=== PATIENT | male | born 1960 | race African-American/Black ===

== ENCOUNTER 2023-04-30 04:22 | Inpatient (IN) | payer SELFPAY ==
[2023-04-30 04:36] VITALS: BMI 33.2
[2023-04-30] MEDS ORDERED: FAMOTIDINE 20 MG/50 ML IVPB 20 MG/50 ML MG IVPB ONE ×2 (04:46→04:50)
[2023-04-30] MEDS ORDERED: ONDANSETRON 4 MG/2 ML VIAL IVPUSH ONE ×2 (04:46→08:58)
[2023-04-30] MEDS ORDERED: LACTATED RINGERS SOLUTION 1000 ML INFUS.BAG IV ONE (04:46)
[2023-04-30] MEDS ORDERED: ONDANSETRON 4 MG/2 ML VIAL ONE ×2 (04:50→09:06)
[2023-04-30 05:18] LABS: BASO % 0.5 % (0-2.0); EOS % 3.1 % (0-4.5); HEMATOCRIT 37.4 % (35.4-49); HEMOGLOBIN 12.6 GM/dL (11.7-16.9); LYMPH % 24.3 % (8-40); MCH 30.1 pg (25.7-33.7); MCHC 33.8 g/dl (32.0-35.9); MEAN CELL VOLUME 88.9 fl (80-96); MEAN PLT VOLUME 8.4 fl (7.5-11.1); MONO % 4.7 % (3.8-10.2); NEUT % 67.4 % (42.8-82.8); PLATELET COUNT 314 10^3/uL (134-434); RDW 12.8 % (11.9-15.9); WHITE BLOOD COUNT 11.7 K/mm3 (4.0-10.0)
[2023-04-30 05:44] LABS: INR 0.91 (0.83-1.09); PROTHROMBIN TIME (PATIENT) 10.6 SEC (9.7-13.0)
[2023-04-30 05:47] LABS: ACTIVATED PTT 26.9 SECONDS (25.2-36.5)
[2023-04-30] MEDS ORDERED: METOCLOPRAMIDE HCL INJECTION 10 MG/2 ML VIAL IVPB ONE (05:55)
[2023-04-30] MEDS ORDERED: SODIUM CHLORIDE 0.9% 500 ML INFUS.BAG IV ONE (05:56)
[2023-04-30] MEDS ORDERED: METOCLOPRAMIDE HCL INJECTION 10 MG/2 ML VIAL ONE (05:57)
[2023-04-30 06:00] LABS: VENOUS BASE EXCESS -4.2 mmol/L (-2-2); VENOUS O2 SATURATION 34.3 % (70-80); VENOUS PCO2 53.3 mmHg (38-52); VENOUS PH 7.261 (7.310-7.410)
[2023-04-30 06:31] LABS: LACTIC ACID 2.9 mmol/L (0.4-2.0)
[2023-04-30 06:37] LABS: CHLORIDE 101 mmol/L (98-107); POTASSIUM 4.1 mmol/L (3.5-5.1); SODIUM 134 mmol/L (136-145)
[2023-04-30 06:39] LABS: CALCIUM 8.5 mg/dL (8.5-10.1)
[2023-04-30 06:40] LABS: ALBUMIN 3.1 g/dl (3.4-5.0); ANION GAP 8 MMOL/L (8-16); BLOOD UREA NITROGEN 27.2 mg/dL (7-18); CO2 25 mmol/L (21-32); LIPASE 123 U/L (73-393); MAGNESIUM 1.7 mg/dL (1.8-2.4)
[2023-04-30 06:42] LABS: SGPT/ALT 19 U/L (13-61)
[2023-04-30 06:43] LABS: CREATININE 1.3 mg/dL (0.55-1.3); SGOT/AST 12 U/L (15-37)
[2023-04-30 06:44] LABS: BILIRUBIN,TOTAL 0.2 mg/dL (0.2-1); TOT PROT 7.4 g/dl (6.4-8.2)
[2023-04-30 06:45] LABS: ALK PHOS 78 U/L (45-117)
[2023-04-30] MEDS ORDERED: INSULIN REGULAR HUMAN 100 UNITS/ML *VIAL SQ ONE ×2 (06:53→10:29)
[2023-04-30] MEDS ORDERED: INSULIN REGULAR HUMAN 100 UNITS/ML *VIAL ONE (06:58)
[2023-04-30 07:03] LABS: GLUCOSE,RANDOM 492 mg/dL (74-106)
[2023-04-30] MEDS ORDERED: ASPIRIN 81 MG CHEWABLE TABLETS PO ONE (07:04)
[2023-04-30] MEDS ORDERED: ASPIRIN 81 MG CHEWABLE TABLETS ONE (07:16)
[2023-04-30] MEDS ORDERED: HEPARIN NA (PORCINE) 5,000 UNITS/ML 1ML VIAL IVPUSH ONE (07:38)
[2023-04-30] MEDS ORDERED: HEPARIN INFUSION - 25,000 UNITS/500 ML INFUS.BAG IVPB SCH (07:45)
[2023-04-30 07:49] LABS: N-TERMINAL BNP 235.4 pg/ml (5-125)
[2023-04-30] MEDS ORDERED: HEPARIN INFUSION - 25,000 UNITS/500 ML INFUS.BAG IVPB ONE (08:03)
[2023-04-30] MEDS ORDERED: HEPARIN NA (PORCINE) 5,000 UNITS/ML 1ML VIAL ONE (08:04)
[2023-04-30 08:10] LABS: PH,URINE 5.5 (5.0-8.0); URINE APPEARANCE CLEAR; URINE BILIRUBIN NEGATIVE (NEGATIVE); URINE COLOR YELLOW; URINE GLUCOSE (UA) 3+ (NEGATIVE); URINE KETONE TRACE (NEGATIVE); URINE LEUK ESTERASE NEGATIVE (NEGATIVE); URINE NITRITE NEGATIVE (NEGATIVE); URINE PROTEIN TRACE (NEGATIVE); URINE UROBILINOGEN 0.2 mg/dL (0.2-1.0)
[2023-04-30 09:53] LABS: CHLORIDE 100 mmol/L (98-107); POTASSIUM 4.1 mmol/L (3.5-5.1); SODIUM 133 mmol/L (136-145)
[2023-04-30 09:56] LABS: CALCIUM 8.4 mg/dL (8.5-10.1)
[2023-04-30 09:57] LABS: ANION GAP 11 MMOL/L (8-16); CO2 22 mmol/L (21-32)
[2023-04-30 10:00] LABS: CREATININE 1.2 mg/dL (0.55-1.3)
[2023-04-30 10:01] LABS: GLUCOSE,RANDOM 466 mg/dL (74-106)
[2023-04-30] MEDS ORDERED: SODIUM CHLORIDE 1,000 ML IV SCH (10:30)
[2023-04-30] MEDS ORDERED: TRIMETHOBENZAMIDE HCL 200MG/2ML INJ IM PRN (10:31)
[2023-04-30] MEDS ORDERED: METOPROLOL TARTRATE 5 MG/5 ML VIAL IVPUSH ONE (10:45)
[2023-04-30] MEDS ORDERED: METOPROLOL TARTRATE 25 MG TABLET (FP) PO ONE (11:00)
[2023-04-30] MEDS ORDERED: metoPROLOL SUCCINATE 25 MG TAB.SR.24H (FP) PO SCH (11:00)
[2023-04-30] MEDS ORDERED: INSULIN (NOVOLOG) ASPART 100 UNITS/ML 10ML VIAL SQ ONE ×2 (11:15→14:30)
[2023-04-30] MEDS ORDERED: SODIUM CHLORIDE 500 ML IV STA (11:29)
[2023-04-30] MEDS ORDERED: MAGNESIUM SULF 50% (8.12 MEQ/2 ML-1 GM VIAL) IVPB ONE (12:00)
[2023-04-30 12:28] LABS: CHOLESTEROL 156 mg/dL (50-200)
[2023-04-30 12:29] LABS: LDL CHOLESTEROL (ONLY SJRH) 95 mg/dL (5-100)
[2023-04-30 12:31] LABS: HDL CHOLESTEROL 50 mg/dL (40-60)
[2023-04-30] MEDS ORDERED: MAGNESIUM SULFATE IN WATER 2 GM/50 ML IVPB IVPB ONE (12:55)
[2023-04-30] MEDS ORDERED: metoPROLOL SUCCINATE 25 MG TAB.SR.24H (FP) PO ONE (12:55)
[2023-04-30] MEDS ORDERED: INSULIN (NOVOLOG) ASPART 100 UNITS/ML 10ML VIAL ONE ×2 (12:56→12:57)
[2023-04-30] MEDS ORDERED: INSULIN (LEVEMIR) 100 UNITS/ML UNITS SQ SCH (14:30)
[2023-04-30 15:21] VITALS: BP 153/83; PULSE 94; RESP 18
[2023-04-30 15:22] VITALS: TEMP 98.9
[2023-04-30] MEDS ORDERED: INSULIN SLIDING SCALE (NOVOLOG) 1 VIAL SQ SCH (16:30)
[2023-04-30] MEDS ORDERED: ATORVASTATIN CA 80 MG TABLET (FP) PO SCH (22:00)
[2023-05-01] MEDS ORDERED: ASPIRIN 81 MG CHEWABLE TABLETS PO SCH (10:00)
== END 2023-04-30 18:37 | disposition short-term general hospital (02) | DRG 190 ==
LOC: JER 04:22 → JERBED 07:39
PROVIDERS: ADMIT Internal Medicine; ATTEND Internal Medicine
DX: I21.4 Non-ST elevation (NSTEMI) myocardial infarction (principal); E87.20 Acidosis, unspecified; E11.65 Type 2 diabetes mellitus with hyperglycemia; E66.9 Obesity, unspecified; I16.1 Hypertensive emergency; J98.11 Atelectasis; N20.0 Calculus of kidney; Z68.33 Body mass index [BMI] 33.0-33.9, adult
CPT/HCPCS: 0241U-QW; 36415; 70450-TC; 71045-TC-FY; 71275-TC; 74174-TC; 76705-TC; 80048; 80053; 80061; 81003; 82010; 82803; 82962; 83036; 83605; 83690; 83735; 83880; 84484; 85025; 85610; 85730; 87086; 93005; 93010; 93306-TC; 93308; 99285-25; J1644; Q9967